=== PATIENT | male | born 1960 | race American Indian/Alaskan Native ===

== ENCOUNTER 2017-03-01 12:52 | Outpatient (CLI) | payer MEDICARE ==
--- NOTE | 2017-03-05 11:11 | PET Report ---
PET/CT:03/01/17 12:52:00 CLINICAL: RADIOPHARMACEUTICAL: mCi F18-FDG. COMPARISON: PET/CT TECHNIQUE- Following intravenous injection of F-18 FDG and an approximately 60 minute uptake period, CT and PET images from the mid skull to the upper thighs were acquired with the patient in the fasted state. No contrast was administered. The CT protocol used for this PET CT study is designed for attenuation correction and anatomic localization of PET abnormalities. This real estate site analyst CT is not desired to produce and cannot replace, [id number] diagnostic CT scans with specific imaging protocols for different body parts and indications. Plasma glucose at the time of this test: g/dl. The standardized uptake values (SUV) are normalized to patient body weight and indicate the highest activity concentration (SUV max) in a given disease site. FINDINGS: Brain--Physiologic FDG uptake in the visualized regions of the brain. Neck--Physiologic FDG uptake . Chest--Physiologic FDG uptake in mediastinal blood pool and myocardium. Lungs--No abnormal uptake. No pulmonary nodule or mass. Pleura/pericardium--No abnormal uptake. Thoracic nodes--No abnormal uptake. Hepatobiliary--Focal FDG uptake in the right lobe near the confluence of hepatic veins with SUV 7.5. It measures less than 2 cm diameter with no corresponding lesion identified by CT only. Liver background SUV mean, as a reference for comparing FDG studies, is 3.8 . Spleen--No abnormal uptake. Pancreas--No abnormal uptake. Adrenal Glands--No abnormal uptake. Kidneys/Ureters/Bladder--No abnormal uptake. Abdominopelvic Nodes--A single retrocaval FDG avid lymph node measures approximately 1.5 x 1.0 cm with SUV 13.7. No other abnormal lymph nodes. Bowel/Peritoneum/Mesentery--No abnormal uptake. Status post right hemicolectomy with a normal anastomosis. Pelvic organs--No abnormal uptake. Bones/Soft Tissues--No abnormal uptake. Other findings: Healed midline abdominal incision and mild FDG uptake in a scar. IMPRESSION- 1. A single right hepatic metastasis and a single retroperitoneal lymph node metastasis.2. No evidence of pulmonary metastasis.
== END 2017-03-01 12:53 | disposition home or self-care (01) ==
LOC: PET 12:52
DX: C18.9 Malignant neoplasm of colon, unspecified (principal); Z79.1 Long term (current) use of non-steroidal anti-inflammatories (NSAID)
CPT/HCPCS: 78815; 82962; A9552

== ENCOUNTER 2017-03-05 09:50 | Day surgery (SDC) | payer MEDICARE ==
[2017-03-05] MEDS ORDERED: NACL BACTERIOSTATIC INFILTRATI ONE (10:42)
[2017-03-05] MEDS ORDERED: ANCEF/STERILE WATER 2 GM/20 ML IV NR (11:00)
--- NOTE | 2017-03-05 11:00 | Anesthesia Day of Surgery ---
Anesthesia Day of Surgery - Day of Surgery Patient Examined: Yes Patient H&P Reviewed: Yes Patient is NPO: Yes Cardiac Clearance: Yes
--- NOTE | 2017-03-05 11:04 | Anesthesia Consultation ---
<MALU QUINONES KRISTY - Last Filed: 03/05/17 11:05> Anesthesia Consult and Med Hx Date of service: 03/05/17 - Airway Anesthetic Teeth Evaluation: Good ROM Head & Neck: Adequate Mental/Hyoid Distance: Adequate Mallampati Class: Class II Intubation Access Assessment: Probably Good - Pulmonary Exam CTA: Yes - Cardiac Exam Cardiac Exam: RRR - Pre-Operative Health Status ASA Pre-Surgery Classification: ASA4 Proposed Anesthetic Plan: General - Pre-Anesthesia Comment Pre-Anesthesia Comments: Cardiac clearance on chart. 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, LEFT HAND WEAKNESS) Hx Psychiatric Problems: No - Endocrine Hx Renal Disease: No Hx End Stage Renal Disease: No Hx Insulin Dependent Diabetes: No Hx Non-Insulin Dependent Diabetes: No (?prn insulin orders) Hx Thyroid Disease: No Hx Hypothyroidism: No - Hematic Hx Anemia: Yes Hx Sickle Cell Disease: No - Other Systems Hx Cancer: Yes (COLON CA SP COLONECTOMY (3 WEEKS AGO)) Hx Obesity: Yes (BMI 32.9) - Additional Comments Anesthesia Medical History Comments: NAC <VALDEZ BRADY - Last Filed: 03/05/17 12:53> Anesthesia Consult and Med Hx - Endocrine Hx Insulin Dependent Diabetes: Yes (diagnosis on chart of IDDM)
[2017-03-05] MEDS ORDERED: PEPCID PO NR (12:00)
[2017-03-05] MEDS ORDERED: NACL 0.9% 1000 ML 1,000 ML IV SCH (12:00)
[2017-03-05] MEDS ORDERED: VERSED IV NR (12:00)
[2017-03-05] MEDS ORDERED: DIPRIVAN 10 MG/ML IV ONE ×2 (12:12)
[2017-03-05] MEDS ORDERED: DILAUDID ONE (12:13)
[2017-03-05] MEDS ORDERED: SUBLIMAZE ONE (12:13)
[2017-03-05] MEDS ORDERED: XYLOCAINE MPF 2% ONE (12:17)
[2017-03-05] MEDS ORDERED: HEPARIN 10,000 UNITS/10 ML ONE (12:42)
[2017-03-05] MEDS ORDERED: NACL 0.9% 250ML 250 ML ONE (12:43)
[2017-03-05] MEDS ORDERED: MARCAINE 0.25% INFILTRATI ONE ×2 (12:44→13:53)
[2017-03-05] MEDS ORDERED: XYLOCAINE 1% 20 mL ONE (12:45)
[2017-03-05] MEDS ORDERED: DECADRON ONE (12:59)
[2017-03-05] MEDS ORDERED: ZOFRAN ONE (12:59)
[2017-03-05] MEDS ORDERED: ePHEDrine SULFATE ONE (13:34)
[2017-03-05] MEDS ORDERED: NACL 0.9% 100 ML ONE (13:45)
[2017-03-05] MEDS ORDERED: NEO SYNEPHRINE ONE (13:45)
[2017-03-05] MEDS ORDERED: NACL 0.9% IR ONE (13:47)
[2017-03-05] MEDS ORDERED: XYLOCAINE 1% 20 mL INFILTRATI ONE (13:53)
[2017-03-05] MEDS ORDERED: NACL 0.9% 1000 ML 1,000 ML ONE (14:39)
--- NOTE | 2017-03-05 14:56 | Fluoroscopy Report ---
Findings: 2 fluoroscopic images of the precordial region were captured during placement of a left subclavian venous catheter. The procedure was performed by Dr. Campos. There is no obvious pneumothorax. Please correlate with the procedural report.
--- NOTE | 2017-03-05 15:02 | Operative Report ---
PREOPERATIVE DIAGNOSIS: Cancer of the colon, status post resection of right side 2 weeks ago. POSTOPERATIVE DIAGNOSIS: Cancer of the colon, status post resection of right side 2 weeks ago. PROCEDURE: Insertion of subcutaneous port for chemotherapy. ANESTHESIA: General with local standby with the use of C-arm. DESCRIPTION OF PROCEDURE: With the patient in supine position, prepped and draped in usual fashion. I was able to introduce a needle toward the direction of subclavian vein on the left side, had good backflow of venous blood. At that point, an incision was performed at the insertion site after inserting the guide wire, which showed the guide wire on the C-arm going all the way to the superior vena cava, so a pocket was created to accommodate the system that was assembled together. Then, the port was tacked to the fascia on the left chest area with use of 3-0 Vicryl and then with the guidance of the guide wire, I was able to introduce the dilator, removed the guide wire through the dilator leaving the sheath. Then, the tubing was inserted toward the subclavian vein with the use of the sheath that was pulled apart. I did cut the tubing to accommodate the distance from the pocket to the superior vena cava, had good backflow of venous blood via the port percutaneously. We had good hemostasis. Then, the wound was closed in layers. I used 2-0 Vicryl for the subcutaneous tissue after tacking the port to the fascia and then the skin with 4-0 Vicryl and the bandage. We had another aspiration that showed good venous blood aspiration via the port percutaneously. A bandage was applied. The patient was then transferred to the recovery room in good condition. JOB# [id number] TILA/SHENA
[2017-03-05 15:06] VITALS: BP 101/52
[2017-03-05] MEDS ORDERED: NORCO 5/325 PO PRN (16:31)
--- NOTE | 2017-03-05 17:17 | Post Anesthesia Evaluation ---
- Post Anesthesia Evaluation Patient Participated: Yes Airway Patent: Yes Stable Respiratory Function: Yes Nausea/Vomiting: No Temp > 96.8F: Yes Pain Manageable: Yes Adequeate Hydration: Yes Anesthesia Complications: No
--- NOTE | 2017-03-05 19:26 | Discharge Summary ---
FINAL CLINICAL DIAGNOSIS: Adenocarcinoma of the right colon, status post colon resection about 2 weeks ago for incision of subcutaneous port. The patient was doing well. PHYSICAL EXAMINATION: GENERAL: Showed a well preserved black gentleman who is in no distress. HEAD AND NECK: Negative. CHEST: Clear. HEART: Sounds normal. ABDOMEN: Protuberant, soft, benign. EXTREMITIES: Showed no significant edema. The patient was thus taken to the operating room where he underwent insertion of subcutaneous port via a left subclavian approach with the use of C-arm. Postop, he was transferred to the recovery room and then he was discharged home after he is fully awake, to be seen in my office in [address] to [address] Dr[address] Tiffani Brown for consideration for chemotherapy with the use of the port. FINAL DIAGNOSIS: As above. JOB# [id number] TILA/SHENA
== END 2017-03-05 17:25 | disposition home or self-care (01) ==
LOC: OR 09:50
PROVIDERS: ATTEND Surgery
DX: C18.9 Malignant neoplasm of colon, unspecified (principal); I10 Essential (primary) hypertension; I25.10 Atherosclerotic heart disease of native coronary artery without angina pectoris; I25.2 Old myocardial infarction; E66.9 Obesity, unspecified; Z68.32 Body mass index [BMI] 32.0-32.9, adult; Z95.5 Presence of coronary angioplasty implant and graft; Z86.73 Personal history of transient ischemic attack (TIA), and cerebral infarction without residual deficits; Z90.49 Acquired absence of other specified parts of digestive tract
CPT/HCPCS: 36561; 77001; 82962; C1788; J0690; J1644; J2250; J2370; J2704; J3010; J7030; J7050; J1100; J1170; J2405

== ENCOUNTER 2017-03-21 14:40 | Outpatient (CLI) | payer BC, MEDICARE ==
[2017-03-21 16:33] LABS: Blood Urea Nitrogen 19 mg/dL (9-20)
--- NOTE | 2017-03-22 11:02 | Magnetic Resonance Report ---
MRI ABDOMEN WITH AND WITHOUT CONTRAST INDICATION: Colon cancer with liver lesion on PET. COMPARISON: 03/01/2017 PET/CT and 02/02/[address] FINDINGS: Multiplanar and multisequence MRI of the abdomen performed utilizing 20 ml MultiHance intravenously, though in part limited due to the patient's inability to raise right arm above the head and motion artifact with few sequences repeated. Normal hepatic and splenic contours without biliary dilatation or fatty infiltration. Corresponding to the PET-CT abnormality, a minimally T1 hypo and T2 hyper-intense right hepatic lobe lesion medially may be noted at the junction of the right hepatic vein and the IVC, estimated at 1.7 cm and best seen on the postcontrast phase images as axial series 14, image 59, though not significantly enhancing visually. This lesion was occult on prior CT. No other definite focal suspicious hepatic lesions. Patent veins. Pancreas, gallbladder, adrenals, nonaneurysmal abdominal aorta, IVC and kidneys otherwise within normal limits. Indeterminate 5 mm left upper renal cortical hypointensity. Approximately 4 mm right renal interpolar slightly exophytic cystic lesion, axial series 4, image 27 as well. Other hypermetabolic approximately 2.5 x 1.8 cm retrocaval lymph node as on axial series 14, image 99 may demonstrate a mixed partially enhancing appearance. Interval abdominal surgery/possible right hemicolectomy and resection/sampling of adjacent largest 3 x 2.2 cm right lower quadrant mesenteric lymph node seen preoperatively. Nonobstructive bowel gas pattern. No ascites. Grossly normal marrow and muscle signal. Clear visualized lung bases. CONCLUSION: 1. MRI appearance in keeping with PET-CT findings of a single right hepatic lobe metastasis medially (segment 7) and a metastatic retrocaval lymph node, as described. They are noted not overtly hypervascular with the hepatic lesion rather occult on prior CT and precontrast MRI imaging. 2. Interval abdominal postsurgical changes/right hemicolectomy and probable resection of adjacent enlarged mesenteric lymph nodes, as above. Thank you for the opportunity to participate in this patient's care.
== END 2017-03-21 14:41 | disposition home or self-care (01) ==
LOC: MRI 14:40
DX: C78.7 Secondary malignant neoplasm of liver and intrahepatic bile duct (principal); C18.2 Malignant neoplasm of ascending colon; K76.89 Other specified diseases of liver; Z90.49 Acquired absence of other specified parts of digestive tract
CPT/HCPCS: 36415; 74183; 82565; 84520; A9577